=== PATIENT | female | born 1970 ===

== ENCOUNTER 2017-05-04 17:38 | Emergency (ER) | payer MEDICARE, MEDICAID ==
[2017-05-04 18:02] VITALS: BP 121/79; PULSE 82; RESP 20; TEMP 98.1; O2SAT 100
--- NOTE | 2017-05-05 00:42 | C.PDOC ---
Time Seen by Provider: 05/04/17 19:16 Chief Complaint (Nursing): ENT Problem Past Medical History Vital Signs: Last Vital Signs Temp 98.1 F 05/04/17 17:58 Pulse 82 05/04/17 17:58 Resp 20 05/04/17 17:58 BP 121/79 05/04/17 17:58 Pulse Ox 100 05/04/17 17:58 - Medical History PMH: Hypercholesterolemia, Schizophrenia Family History: States: Unknown Family Hx - Social History Hx Tobacco Use: Yes Hx Alcohol Use: No Hx Substance Use: No - Immunization History Hx Tetanus Toxoid Vaccination: No Hx Influenza Vaccination: No Hx Pneumococcal Vaccination: No ED Course And Treatment O2 Sat by Pulse Oximetry: 100 Disposition - Disposition Disposition Time: 19:00 Condition: UNKNOWN - Clinical Impression Clinical Impression: Patient left without being seen
== END 2017-05-04 19:16 | disposition left against medical advice (07) ==
LOC: C.ER 17:38
DX: Z02.89 Encounter for other administrative examinations (principal); H92.02 Otalgia, left ear

== ENCOUNTER 2018-03-01 16:41 | Outpatient (CLI) | payer MEDICARE, MEDICAID | END 2018-03-01 16:42 | disposition home or self-care (01) | LOC: C.CTH 16:41 ==

== ENCOUNTER 2018-04-01 09:16 | Outpatient (CLI) | payer MEDICARE, MEDICAID | END 2018-04-01 09:17 | disposition home or self-care (01) | LOC: C.MAMMO 09:16 | DX: Z12.31 Encounter for screening mammogram for malignant neoplasm of breast (principal) ==

== ENCOUNTER 2018-04-08 19:11 | Emergency (ER) | payer MEDICARE, MEDICAID ==
[2018-04-08] MEDS ORDERED: Lidocaine 5% Patch TD STA (22:10)
--- NOTE | 2018-04-08 22:23 | C.PDOC ---
History Of Present Illness 47 year old female presents to the emergency department with complaints of upper back pain for the past week and a half. Patient states that the pain is worse with movement, particularly when reaching for something. Patient states that the pain is greater on the right side than the left. She denies any trauma or injury. Time Seen by Provider: 04/08/18 19:50 Chief Complaint (Nursing): Back Pain History Per: Patient History/Exam Limitations: no limitations Onset/Duration Of Symptoms: Other (week and a half) Current Symptoms Are (Timing): Still Present Quality Of Discomfort: "Pain" Associated Symptoms: None. denies: Incontinence, New Weakness, New Numbness Exacerbating Factor(s): Turning, Movement Past Medical History Reviewed: Historical Data, Nursing Documentation, Vital Signs Vital Signs: Last Vital Signs Temp 98.8 F 04/08/18 19:39 Pulse 86 04/08/18 19:39 Resp 16 04/08/18 19:39 BP 119/79 04/08/18 19:39 Pulse Ox 98 04/08/18 19:39 - Medical History PMH: Hypercholesterolemia, Schizophrenia Surgical History: No Surg Hx Family History: States: No Known Family Hx - Social History Hx Tobacco Use: Yes Hx Alcohol Use: No Hx Substance Use: No - Immunization History Hx Tetanus Toxoid Vaccination: No Hx Influenza Vaccination: No Hx Pneumococcal Vaccination: No Review Of Systems Except As Marked, All Systems Reviewed And Found Negative. Constitutional: Negative for: Fever, Chills Respiratory: Negative for: Cough, Shortness of Breath Gastrointestinal: Negative for: Nausea, Vomiting, Abdominal Pain, Diarrhea Musculoskeletal: Positive for: Back Pain Physical Exam - Physical Exam Appears: Non-toxic, No Acute Distress Skin: Normal Color, Warm, Dry Head: Atraumatic, Normacephalic Eye(s): bilateral: Normal Inspection, PERRL, EOMI Neck: Normal, Supple Chest: Symmetrical, No Tenderness Back: No Vertebral Tenderness, Paraspinal Tenderness (tenderness to the dorsal paraspinal area, right greater than left) Extremity: Normal ROM, No Tenderness Neurological/Psych: Oriented x3, Normal Speech, Normal Cognition ED Course And Treatment O2 Sat by Pulse Oximetry: 98 (RA) Pulse Ox Interpretation: Normal - Other Rad XR Dorsal Spine X-Ray: Interpreted by Me, Viewed By Me Interpretation: No acute fractures or dislocations. Progress Note: Plan: Lidoderm 1ea TD. Toradol 60mg IM. Valium 5mg PO. POC Urine . XR Dorsal Spine. Patient reported feeling better after treatment, discharged home. Disposition - Disposition Referrals: Lupe Schwartz MD [Staff Provider] - Disposition: HOME/ ROUTINE Disposition Time: 22:20 Condition: STABLE Additional Instructions: Follow up with PMD within 10-2 days. Return to ED if feel worse. Prescriptions: Lidocaine 5% [Lidoderm] 1 patch TP DAILY #30 patch Ibuprofen [Motrin Tab] 600 mg PO Q8 #30 tab diaZEpam [Valium] 2 mg PO TID #15 tab Instructions: Upper Back Pain (DC) Forms: [employer] (Turkmen) - Clinical Impression Clinical Impression: Thoracic back pain - PA / THERAPEUTIC RECREATION SPECIALIST / Resident Statement MD/DO has reviewed & agrees with the documentation as recorded. - Scribe Statement The provider has reviewed the documentation as recorded by the Scribe (Broderick Guerra) All medical record entries made by the Scribe were at my direction and personall y dictated by me. I have reviewed the chart and agree that the record accurately reflects my personal performance of the history, physical exam, medical decision making, and the department course for this patient. I have also personally directed, reviewed, and agree with the discharge instructions and disposition.
[2018-04-08] MEDS ORDERED: Lidocaine 5% Patch TD ONE (22:27)
[2018-04-08 22:47] VITALS: BP 130/84; PULSE 78; RESP 18; TEMP 98
[2018-04-09 03:26] VITALS: O2SAT 98
--- NOTE | 2018-04-09 11:40 | RAD ---
Date of service: 04/08/2018 HISTORY: Atraumatic pain COMPARISON: No prior. FINDINGS: BONES: No acute fractures. Vertebral bodies exhibit relatively normal stature. Vertebral and facets normally aligned DISC SPACES: Mild multilevel degenerative spondylosis SOFT TISSUES: Normal. OTHER FINDINGS: None. IMPRESSION: Mild multilevel degenerative spondylosis. No acute fractures.
== END 2018-04-08 22:47 | disposition home or self-care (01) ==
LOC: C.ER 19:11
DX: M54.6 Pain in thoracic spine (principal)
CPT/HCPCS: 72070; 81025; 96372; 99284; J1885

== ENCOUNTER 2018-05-04 10:24 | Outpatient (CLI) | payer MEDICARE, MEDICAID | END 2018-05-04 10:25 | disposition home or self-care (01) | LOC: C.MAMMO 10:25 ==

== ENCOUNTER 2018-05-31 09:01 | Outpatient (CLI) | payer MEDICARE, MEDICAID | END 2018-05-31 09:02 | disposition home or self-care (01) | LOC: C.SPRAD 09:01 ==